=== PATIENT | female | born 1970 | race Caucasian/White ===

== ENCOUNTER 2018-02-06 20:39 | Emergency (ER) | payer MEDICAID, OTHER ==
[~2018-02-06] VITALS: Ht 149.9 cm; Wt 68.2 kg
[2018-02-06] MEDS ORDERED: morphine 4 MG/ML inj SYRINge IV ONE ×2 (21:00→21:40)
[2018-02-06] MEDS ORDERED: ondansetron/PF 4mg/2ml inj IV ONE (21:00)
[2018-02-06] MEDS ORDERED: LIDOcaine 1% 30ml preserv. free vial IJ ONE (21:55)
[2018-02-06] MEDS ORDERED: TETanus/Pertussis (Acell)/Diphther VAC/PF (Tdap-Adult) 0.5ml syringe IM ONE (22:35)
[2018-02-06] MEDS ORDERED: cephalexin 250mg capsule PO ONE (22:35)
[2018-02-06] MEDS ORDERED: CEPH500C2 PO (23:03)
[2018-02-06] MEDS ORDERED: HYDR-3965 PO (23:03)
[2018-02-06] MEDS ORDERED: IBUP-1986 PO (23:03)
[2018-02-06 23:26] VITALS: BP 125/84
== END 2018-02-07 00:35 | disposition home or self-care (01) ==
LOC: ER 20:39
DX: S80.852A Superficial foreign body, left lower leg, initial encounter (principal); Z79.899 Other long term (current) drug therapy; W45.8XXA Other foreign body or object entering through skin, initial encounter; Y93.89 Activity, other specified; Y92.89 Other specified places as the place of occurrence of the external cause; Y99.8 Other external cause status
CPT/HCPCS: 73590; 90471; 90715; 96374; 96375; 96376; 99284; A6449; J2270; J2405; J3490

== ENCOUNTER → 2018-02-19 | Outpatient (CLI) | payer MEDICAID, OTHER ==
[~2018-02-19] MED LIST: CEPH500C2 PO; HYDR-3965 PO; IBUP-1986 PO
[2018-02-19 09:27] VITALS: BP 145/94
== END | disposition home or self-care (01) ==
LOC: ORTHO 09:23
PROVIDERS: ATTEND Nurse Practitioner Family
DX: S80.852A Superficial foreign body, left lower leg, initial encounter (principal); F17.210 Nicotine dependence, cigarettes, uncomplicated; X58.XXXA Exposure to other specified factors, initial encounter; Y93.89 Activity, other specified; Y92.89 Other specified places as the place of occurrence of the external cause; Y99.8 Other external cause status
CPT/HCPCS: 99213; A6449

== ENCOUNTER 2018-02-26 09:06 | Outpatient (CLI) | payer MEDICAID, OTHER ==
[2018-02-26 09:11] VITALS: BP 135/87
== END 2018-02-26 09:52 | disposition home or self-care (01) ==
LOC: ORTHO 09:06
PROVIDERS: ATTEND Nurse Practitioner Family
DX: S80.852D Superficial foreign body, left lower leg, subsequent encounter (principal); F17.210 Nicotine dependence, cigarettes, uncomplicated; X58.XXXD Exposure to other specified factors, subsequent encounter
CPT/HCPCS: 99212; A6449

== ENCOUNTER → 2018-03-05 | Outpatient (CLI) | payer MEDICAID, OTHER ==
[2018-03-05 11:51] VITALS: BP 124/65
== END | disposition home or self-care (01) ==
LOC: ORTHO 11:58
PROVIDERS: ATTEND Nurse Practitioner Family
DX: S80.852D Superficial foreign body, left lower leg, subsequent encounter (principal); M25.672 Stiffness of left ankle, not elsewhere classified; F17.210 Nicotine dependence, cigarettes, uncomplicated; X58.XXXD Exposure to other specified factors, subsequent encounter
CPT/HCPCS: 99213

== ENCOUNTER 2018-05-04 12:15 | Emergency (ER) | payer MEDICAID ==
[~2018-05-04] VITALS: Ht 162.6 cm; Wt 140.0 kg
[~2018-05-04 12:15] MED LIST changes: -CEPH500C2 PO; -HYDR-3965 PO
[2018-05-04] MEDS ORDERED: normal saline 1000ML IV soln IVB STA (12:21)
[2018-05-04] MEDS ORDERED: famotidine/PF 10 mg/ml inj IV ONE (12:25)
[2018-05-04] MEDS ORDERED: methylPREDNISolone sod succ 125mg/2ml vial IV ONE (12:25)
[2018-05-04] MEDS ORDERED: diphenhydrAMINE 50 mg/ml inj IV ONE (12:25)
[2018-05-04 12:31] LABS: BASOPHILS % (AUTO) 0.8 % (0-1); EOSINOPHILS # (AUTO) 0.1 X10'3 (0-0.9); EOSINOPHILS % (AUTO) 2.6 % (0-6); HEMATOCRIT 47.2 % (35.0-45.0); HEMOGLOBIN 16.1 g/dl (12.0-16.0); LYMPHOCYTES # (AUTO) 1.5 X10'3 (1.1-4.8); LYMPHOCYTES % (AUTO) 39.4 % (21-51); MEAN CORPUSCULAR HEMOGLOBIN 32.7 PG (27.0-31.0); MEAN CORPUSCULAR HGB CONC 34.1 % (33.0-36.5); MEAN CORPUSCULAR VOLUME 95.9 FL (78-98); MEAN PLATELET VOLUME 8.4 FL (7.4-10.4); MONOCYTES # (AUTO) 0.1 X10'3 (0-0.9); MONOCYTES % (AUTO) 3.5 % (2-12); NEUTROPHILS # (AUTO) 2.1 X10'3 (1.8-7.7); NEUTROPHILS % (AUTO) 53.7 % (42-75); PLATELET COUNT 250 X10'3 (140-440); RED BLOOD COUNT 4.92 X10'6 (4.20-5.60); RED CELL DISTRIBUTION WIDTH 12.1 % (11.5-14.5); WHITE BLOOD COUNT 3.9 X10'3 (4.5-11.0)
[2018-05-04 12:46] LABS: ALANINE AMINOTRANSFERASE 156 U/L (12-78); ALBUMIN 3.6 G/DL (3.4-5.0); ALKALINE PHOSPHATASE 83 IU/L (46-116); ANION GAP 8 (8-16); ASPARTATE AMINO TRANSFERASE 86 U/L (10-37); BILIRUBIN,TOTAL 0.6 MG/DL (0.1-1.0); BLOOD UREA NITROGEN 15 MG/DL (7-18); BUN/CREATININE RATIO 17.9 (6.6-38.0); CALCIUM 8.6 MG/DL (8.5-10.1); CHLORIDE 106 MMOL/L (99-107); CREATININE 0.84 MG/DL (0.40-0.90); GLUCOSE 144 MG/DL (70-104); POTASSIUM 3.2 MMOL/L (3.5-5.1); SODIUM 143 MMOL/L (135-145); TOTAL CARBON DIOXIDE 29.2 MMOL/L (24-32); TOTAL PROTEIN 7.2 G/DL (6.4-8.2); eGFR 72 ML/MIN
[2018-05-04 12:48] LABS: PARTIAL THROMBOPLASTIN TIME 24 SECONDS (22-32); PROTHROMBIN TIME 10.5 SECONDS (9.0-12.0)
[2018-05-04 12:50] LABS: ETHANOL 0.066 GM/DL (0.0-0.010)
[2018-05-04] MEDS ORDERED: HYDROcodone/acetaminophen 10/325mg tab PO ONE (14:45)
[2018-05-04] MEDS ORDERED: METH4TAB81 PO (14:53)
[2018-05-04] MEDS ORDERED: TRAM50TA2 PO (14:53)
[2018-05-04 15:02] LABS: URINE AMPHETAMINE SCREEN POSITIVE (Neg); URINE BARBITUATE SCREEN NEGATIVE (Neg); URINE BENZODIAZEPINES SCREEN NEGATIVE (Neg); URINE CANNABINOID SCREEN NEGATIVE (Neg); URINE COCAINE SCREEN NEGATIVE (Neg); URINE METHADONE SCREEN NEGATIVE (Neg); URINE OPIATE SCREEN POSITIVE (Neg); URINE PHENCYCLIDINE SCREEN NEGATIVE (Neg)
[2018-05-04 15:12] VITALS: BP 126/81
== END 2018-05-04 15:14 | disposition home or self-care (01) ==
LOC: ER 12:15
DX: S02.2XXA Fracture of nasal bones, initial encounter for closed fracture (principal); T63.441A Toxic effect of venom of bees, accidental (unintentional), initial encounter; Y92.89 Other specified places as the place of occurrence of the external cause; M54.2 Cervicalgia; F10.129 Alcohol abuse with intoxication, unspecified; Z79.899 Other long term (current) drug therapy; V86.99XA Unspecified occupant of other special all-terrain or other off-road motor vehicle injured in nontraffic accident, initial encounter; Y93.89 Activity, other specified; Y99.8 Other external cause status
CPT/HCPCS: 36415; 70450; 70486; 72125; 80053; 80305; 80320; 85025; 85610; 85730; 93005; 96374; 96375; 99285; J1200; J2930; J3490

== ENCOUNTER 2018-11-01 19:39 | Emergency (ER) | payer MEDICAID ==
[~2018-11-01] VITALS: Ht 149.9 cm; Wt 65.0 kg
[~2018-11-01 19:39] MED LIST changes: +METH4TAB81 PO
[2018-11-01 19:42] VITALS: BP 159/97
[2018-11-01 20:17] LABS: CLARITY,URINE SLIGHTLY CLOUDY (Clear); COLOR,URINE YELLOW (Yellow); GLUCOSE, URINE NEGATIVE (Neg); KETONES,URINE NEGATIVE (Neg); LEUKOCYTE ESTERASE ,URINE NEGATIVE (Neg); NITRITES, URINE NEGATIVE (Neg); OCCULT BLOOD,URINE SMALL (Neg); PH,URINE 7.5 (4.8-8.0); PROTEIN,URINE NEGATIVE (Neg); UROBILINOGEN,URINE 0.2 E.U/dL (0.2-1.0)
[2018-11-01 20:18] LABS: UA COLLECTION TYPE CLN CATCH MIDSTREAM
[2018-11-01 20:21] LABS: URINE HCG NEGATIVE (NEG)
[2018-11-01 20:28] LABS: AMORPHOUS PHOSPHATES 3+; BACTERIA,URINE NONE SEEN /HPF (Neg); MUCUS STRANDS MODERATE /LPF (Neg); RBC,URINE 0-2 /HPF (0-2); SQUAMOUS EPITHELIAL CELL,UR MODERATE /LPF (FEW); WBC,URINE 0-4 /HPF (0-4)
[2018-11-01 20:50] LABS: BASOPHILS % (AUTO) 0.5 % (0-1); EOSINOPHILS # (AUTO) 0.1 X10'3 (0-0.9); EOSINOPHILS % (AUTO) 1.3 % (0-6); HEMATOCRIT 46.8 % (35.0-45.0); HEMOGLOBIN 16.1 g/dl (12.0-16.0); LYMPHOCYTES # (AUTO) 1.1 X10'3 (1.1-4.8); LYMPHOCYTES % (AUTO) 12.9 % (21-51); MEAN CORPUSCULAR HEMOGLOBIN 32.9 PG (27.0-31.0); MEAN CORPUSCULAR HGB CONC 34.4 g/dL (33.0-36.5); MEAN CORPUSCULAR VOLUME 95.4 FL (78-98); MEAN PLATELET VOLUME 8.5 FL (7.4-10.4); MONOCYTES # (AUTO) 0.5 X10'3 (0-0.9); MONOCYTES % (AUTO) 5.5 % (2-12); NEUTROPHILS # (AUTO) 6.9 X10'3 (1.8-7.7); NEUTROPHILS % (AUTO) 79.8 % (42-75); PLATELET COUNT 234 X10'3 (140-440); RED BLOOD COUNT 4.91 X10'6 (4.20-5.60); RED CELL DISTRIBUTION WIDTH 12.6 % (11.5-14.5); WHITE BLOOD COUNT 8.6 X10'3 (4.5-11.0)
[2018-11-01 20:54] LABS: ALANINE AMINOTRANSFERASE 251 U/L (12-78); ALBUMIN 4.2 G/DL (3.4-5.0); ALBUMIN/GLOBULIN RATIO 1.1 (1.1-1.5); ALKALINE PHOSPHATASE 109 IU/L (46-116); ANION GAP 9 (8-16); ASPARTATE AMINO TRANSFERASE 128 U/L (10-37); BILIRUBIN,TOTAL 0.7 MG/DL (0.1-1.0); BLOOD UREA NITROGEN 14 MG/DL (7-18); BUN/CREATININE RATIO 23.3 (6.6-38.0); CALCIUM 9.6 MG/DL (8.5-10.1); CHLORIDE 103 MMOL/L (99-107); GLUCOSE 136 MG/DL (70-104); POTASSIUM 3.4 MMOL/L (3.5-5.1); SODIUM 143 MMOL/L (135-145); TOTAL CARBON DIOXIDE 30.8 MMOL/L (24-32); eGFR > 90 ML/MIN
[2018-11-01] MEDS ORDERED: ciprofloxacin 250mg tablet PO ONE (23:00)
[2018-11-01] MEDS ORDERED: metroNIDAZOLE 500mg tablet PO ONE (23:00)
[2018-11-02] MEDS ORDERED: CIPR-230 PO (00:14)
[2018-11-02] MEDS ORDERED: METR-159 PO (00:14)
[2018-11-02] MEDS ORDERED: HYDROcodone/acetaminophen 5mg/325mg tablet PO ONE (00:15)
[2018-11-02] MEDS ORDERED: HYDR-3965 PO (00:17)
== END 2018-11-02 01:00 | disposition home or self-care (01) ==
LOC: ER 19:39
DX: K52.9 Noninfective gastroenteritis and colitis, unspecified (principal); Z79.2 Long term (current) use of antibiotics; Z79.899 Other long term (current) drug therapy; Z91.030 Bee allergy status
CPT/HCPCS: 36415; 74176; 80053; 81001; 81025; 85025; 85610; 99284; J3490

== ENCOUNTER 2019-03-15 08:01 | Day surgery (SDC) | payer MEDICAID ==
[2019-03-11 14:56] LABS: BASOPHILS % (AUTO) 0.6 % (0-1); EOSINOPHILS % (AUTO) 0.5 % (0-6); LYMPHOCYTES % (AUTO) 15.9 % (21-51); MEAN CORPUSCULAR HEMOGLOBIN 33.9 PG (27.0-31.0); MEAN CORPUSCULAR HGB CONC 34.6 g/dL (33.0-36.5); MEAN CORPUSCULAR VOLUME 97.9 FL (78-98); MEAN PLATELET VOLUME 8.9 FL (7.4-10.4); MONOCYTES # (AUTO) 0.3 X10'3 (0-0.9); MONOCYTES % (AUTO) 5.2 % (2-12); NEUTROPHILS # (AUTO) 4.9 X10'3 (1.8-7.7); NEUTROPHILS % (AUTO) 77.8 % (42-75); PRE OP HEMATOCRIT 45.6 % (35.0-45.0); PRE OP HEMOGLOBIN 15.8 g/dL (12.0-16.0); PRE OP PLATELET COUNT 232 X10'3 (140-440); RED BLOOD COUNT 4.66 X10'6 (4.20-5.60); RED CELL DISTRIBUTION WIDTH 12.3 % (11.5-14.5)
[2019-03-11 15:09] LABS: PRE OP PROTIME 10.1 SECONDS (9.0-12.0)
[2019-03-11 15:12] LABS: ALBUMIN 4.1 G/DL (3.4-5.0); ALBUMIN/GLOBULIN RATIO 1.1 (1.1-1.5); ALKALINE PHOSPHATASE 130 IU/L (46-116); BLOOD UREA NITROGEN 11 MG/DL (7-18); CALCIUM 9.3 MG/DL (8.5-10.1); CHLORIDE 107 MMOL/L (99-107); PRE OP ANION GAP 8 (8-16); PRE OP BILIRUB, TOTAL 0.6 MG/DL (0.0-1.0); PRE OP GLUCOSE 99 MG/DL (70-104); PRE OP POTASSIUM 3.6 MMOL/L (3.4-5.1); PRE OP SODIUM 143 MMOL/L (135-145); TOTAL CARBON DIOXIDE 27.7 MMOL/L (24-32); TOTAL PROTEIN 7.9 G/DL (6.4-8.2); eGFR > 90 ML/MIN
[2019-03-11 15:18] LABS: PRE OP ALT 288 U/L (30-65); PRE OP AST 108 U/L (10-37)
[2019-03-15] VITALS (16 sets, daily range): BP systolic 102–143; BP diastolic 65–97
[~2019-03-15] VITALS: Ht 149.9 cm; Wt 72.2 kg
[~2019-03-15 08:01] MED LIST changes: +ACET-2119 PO; +CETI10TA18 PO; +EPIN0.3A3 SQ; +FAMO-128 PO; +GABA-530 PO; -IBUP-1986 PO; -METH4TAB81 PO; +albuterol 2.5 MG/3 ML nebule NEB ONE; +ceFOXitin 2 GM ADDvantage bag 100 ML IV ONE; +famotidine 20mg tablet PO ONE; +ringers solution, lacted 1,000 ML IV SCH
[2019-03-15] MEDS ORDERED: LIDOcaine 1% 30ml preserv. free vial ONE (08:47)
[2019-03-15] MEDS ORDERED: vasoPRESSIN 20 units/ml inj. ONE (08:47)
[2019-03-15] MEDS ORDERED: ceFAZolin 1000mg inj ONE (08:47)
[2019-03-15] MEDS ORDERED: BUPIVAcaine/PF 2.5 mg/ml (0.25%) 30ml vial ONE (08:47)
[2019-03-15] MEDS ORDERED: clindamycin phosphate 40gm vag cream ONE (08:47)
[2019-03-15] MEDS ORDERED: morphine 10mg/ml inj. ONE (09:51)
[2019-03-15] MEDS ORDERED: ringers solution, lacted 1,000 ML IV SCH (10:29)
[2019-03-15] MEDS ORDERED: fentaNYL/PF 50MCG/1 ML 2ML syringe IV PRN ×2 (10:30)
[2019-03-15] MEDS ORDERED: ondansetron/PF 4mg/2ml inj IV PRN ×2 (10:30→13:40)
[2019-03-15] MEDS ORDERED: hydrALAZINE 20mg/ml inj. IV PRN (10:30)
[2019-03-15] MEDS ORDERED: labetalol 20mg/4ml (5mg/ml) syringe IV PRN (10:30)
[2019-03-15] MEDS ORDERED: morphine 4 MG/ML inj SYRINge IV PRN ×2 (10:30)
[2019-03-15] MEDS ORDERED: midazolam 2 mg/2 ml injection ONE (11:12)
[2019-03-15] MEDS ORDERED: fentaNYL /PF 50mcg/ml 5ml ampule ONE (11:12)
[2019-03-15] MEDS ORDERED: dexamethasone sod phosphate 10mg/ml inj ONE (11:13)
[2019-03-15] MEDS ORDERED: neostigmine methylsulfate 1 MG/ML 10ml vial ONE (11:13)
[2019-03-15] MEDS ORDERED: fluoroscein sod 10% (100mg/ml) 5ml vial ONE (11:13)
[2019-03-15] MEDS ORDERED: glycopyrrolate 0.2mg/ml inj ONE (11:13)
[2019-03-15] MEDS ORDERED: sevoflurane 250ml liquid IH ONE (11:13)
[2019-03-15] MEDS ORDERED: labetalol 20mg/4ml (5mg/ml) syringe IV ONE (11:13)
[2019-03-15] MEDS ORDERED: rocuronium 10mg/ml inj IV ONE (11:23)
[2019-03-15] MEDS ORDERED: LIDOcaine 2% (20mg/ml) 5ml vial ONE (11:23)
[2019-03-15] MEDS ORDERED: propofol inj 20 ML IV ONE (11:23)
[2019-03-15] MEDS ORDERED: ondansetron/PF 4mg/2ml inj ONE (11:24)
[2019-03-15] MEDS ORDERED: ceFAZolin 1000mg inj IR ONE (12:55)
[2019-03-15] MEDS: ringers solution, lacted 1,000 ML IV SCH ×2 (13:38→23:39)
[2019-03-15] MEDS ORDERED: diphenhydrAMINE 50 mg/ml inj IV PRN (13:40)
[2019-03-15] MEDS ORDERED: normal saline 500ml IV soln 500 ML IV PRN (13:40)
[2019-03-15] MEDS ORDERED: magnesium hydroxide 30ml (MOM) UD suspension PO PRN (13:40)
[2019-03-15] MEDS ORDERED: bisacodyl 10mg suppository rectal RC PRN (13:40)
[2019-03-15] MEDS ORDERED: HYDROcodone/acetaminophen 5mg/325mg tablet PO PRN ×2 (13:40)
[2019-03-15] MEDS ORDERED: naloxone 0.4 mg/ml inj IV PRN (13:40)
[2019-03-15] MEDS ORDERED: temazepam 15mg capsule PO PRN (13:40)
[2019-03-15] MEDS ORDERED: CADD PCA waste documentation MC PRN (13:40)
--- NOTE | 2019-03-15 13:45 | NUR ---
ADMITTED TO PACU FROM OR ACCOMPANIED BY ANESTHESIA. INTIAL PHYSICAL ASSESSMENT DONE AND RECORDED. AWAKE AND RESPONSE ON ARRIVE YO PACU, REPORT RECEIVED FROM ANESTHESIA.
[2019-03-15] MEDS: HYDROmorphone/NS 1 mg/ml CADD 50 ML IV SCH ×5 (14:06→23:00)
--- NOTE | 2019-03-15 15:00 | NUR ---
PACU DISCHARGE CRITERIA MET, REPORT GIVEN TO FLOOR. DENIES PAIN OR DISCOMFORT, TRANSFERRED TO ROOM IN STABLE GOOD CONDITION.
[2019-03-15] MEDS: ketorolac trometh. 30mg/ml inj. IV PRN (15:45)
--- NOTE | 2019-03-15 18:27 | NUR ---
Problems reprioritized. Patient report given, questions answered & plan of care reviewed with Lita CONLEY.
--- NOTE | 2019-03-15 18:51 | NUR ---
Patient in room [facility]. I have received report from Snow CONLEY and had the opportunity to ask questions and assume patient care.
[2019-03-15] MEDS: docusate sod 100mg capsule PO SCH (19:51)
[2019-03-16] VITALS: BP 117/93
[2019-03-16] MEDS: HYDROmorphone/NS 1 mg/ml CADD 50 ML IV SCH ×4 (01:00→07:00)
[2019-03-16 05:16] LABS: BASOPHILS % (AUTO) 0.2 % (0-1); EOSINOPHILS % (AUTO) 0 % (0-6); HEMATOCRIT 37.5 % (35.0-45.0); HEMOGLOBIN 12.6 g/dl (12.0-16.0); LYMPHOCYTES # (AUTO) 0.6 X10'3 (1.1-4.8); LYMPHOCYTES % (AUTO) 5.7 % (21-51); MEAN CORPUSCULAR HEMOGLOBIN 33.7 PG (27.0-31.0); MEAN CORPUSCULAR HGB CONC 33.8 g/dL (33.0-36.5); MEAN CORPUSCULAR VOLUME 99.7 FL (78-98); MEAN PLATELET VOLUME 8.8 FL (7.4-10.4); MONOCYTES % (AUTO) 9.3 % (2-12); NEUTROPHILS # (AUTO) 9.4 X10'3 (1.8-7.7); NEUTROPHILS % (AUTO) 84.8 % (42-75); PLATELET COUNT 239 X10'3 (140-440); RED BLOOD COUNT 3.76 X10'6 (4.20-5.60); RED CELL DISTRIBUTION WIDTH 12.5 % (11.5-14.5); WHITE BLOOD COUNT 11.1 X10'3 (4.5-11.0)
[2019-03-16] MEDS: ringers solution, lacted 1,000 ML IV SCH (05:38)
--- NOTE | 2019-03-16 06:23 | NUR ---
Patient in room [facility] 348. I have received report from Ingrid CONLEY and had the opportunity to ask questions and assume patient care.
--- NOTE | 2019-03-16 06:33 | NUR ---
Problems reprioritized. Patient report given, questions answered & plan of care reviewed with Snow CONLEY.
[2019-03-16 06:57] VITALS: BP 108/66
[2019-03-16] MEDS: ketorolac trometh. 30mg/ml inj. IV PRN ×2 (08:05→14:26)
[2019-03-16] MEDS: docusate sod 100mg capsule PO SCH (08:15)
[2019-03-16 12:20] VITALS: BP 99/60
--- NOTE | 2019-03-16 17:52 | NUR ---
Patient discharged, all paper work completed. Patient is aware of next doses for all home medications. IV DC'd. Home educations completed with verbal acknowledgement of understanding. Patient agrees to come into ER if she is unable to void or call Dr. Braun office. Patient has pre scheduled appt with Dr. Jordan. 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 All other belongings are bagged up and with patient to take on discharge.
--- NOTE | 2019-03-16 18:12 | NUR ---
Problems reprioritized. Patient report given, questions answered & plan of care reviewed with Ingrid CONLEY, she is aware patient is discharged and waiting on a ride.
== END 2019-03-16 19:13 | disposition home or self-care (01) ==
LOC: PAS 08:01 → SUR 3N 13:38 → PAS 03-16 19:13
PROVIDERS: ATTEND Specialist
DX: N81.4 Uterovaginal prolapse, unspecified (principal); N80.0 Endometriosis of uterus; N72 Inflammatory disease of cervix uteri; N36.42 Intrinsic sphincter deficiency (ISD); N39.3 Stress incontinence (female) (male); K21.9 Gastro-esophageal reflux disease without esophagitis; F41.9 Anxiety disorder, unspecified; M19.019 Primary osteoarthritis, unspecified shoulder; E66.9 Obesity, unspecified; Z68.26 Body mass index [BMI] 26.0-26.9, adult; Z79.899 Other long term (current) drug therapy; Z79.01 Long term (current) use of anticoagulants; Z98.51 Tubal ligation status; F17.210 Nicotine dependence, cigarettes, uncomplicated; Z72.89 Other problems related to lifestyle; Z91.030 Bee allergy status; Z82.49 Family history of ischemic heart disease and other diseases of the circulatory system; R06.02 Shortness of breath
CPT/HCPCS: 36415; 57240; 57283; 58552; 80053; 82948; 85025; 85610; 85730; 86885; 86900; 86901; 94640; C1771; J0690; J0694; J1100; J1170; J1885; J2001; J2250; J2270; J2405; J2704; J2710; J3010; J3490; J7120; A4215; A4314; A4338; A4355; A4618; A6250; A7000; G0378

== ENCOUNTER → 2019-09-02 | Day surgery (SDC) | payer MEDICAID ==
[2019-08-25 13:16] LABS: BASOPHILS # (AUTO) 0.1 X10'3 (0-0.2); BASOPHILS % (AUTO) 1.4 % (0-1); EOSINOPHILS # (AUTO) 0.1 X10'3 (0-0.9); EOSINOPHILS % (AUTO) 2.8 % (0-6); LYMPHOCYTES # (AUTO) 1.3 X10'3 (1.1-4.8); LYMPHOCYTES % (AUTO) 26.1 % (21-51); MEAN CORPUSCULAR HEMOGLOBIN 32.8 PG (27.0-31.0); MEAN CORPUSCULAR HGB CONC 34.5 g/dL (33.0-36.5); MEAN CORPUSCULAR VOLUME 95.3 FL (78-98); MEAN PLATELET VOLUME 8.6 FL (7.4-10.4); MONOCYTES # (AUTO) 0.3 X10'3 (0-0.9); NEUTROPHILS # (AUTO) 3.1 X10'3 (1.8-7.7); NEUTROPHILS % (AUTO) 62.7 % (42-75); PRE OP HEMATOCRIT 46.3 % (35.0-45.0); PRE OP PLATELET COUNT 277 X10'3 (140-440); RED BLOOD COUNT 4.86 X10'6 (4.20-5.60); RED CELL DISTRIBUTION WIDTH 12.3 % (11.5-14.5)
[2019-08-25 13:28] LABS: PRE OP PROTIME 10.1 SECONDS (9.0-12.0)
[2019-08-25 13:29] LABS: ALBUMIN/GLOBULIN RATIO 1.1 (1.1-1.5); ALKALINE PHOSPHATASE 99 IU/L (46-116); BLOOD UREA NITROGEN 13 MG/DL (7-18); BUN/CREATININE RATIO 22.4 (6.6-38.0); CALCIUM 8.7 MG/DL (8.5-10.1); CHLORIDE 107 MMOL/L (99-107); CREATININE 0.58 MG/DL (0.40-0.90); PRE OP ANION GAP 12 (8-16); PRE OP AST 82 U/L (10-37); PRE OP BILIRUB, TOTAL 0.5 MG/DL (0.0-1.0); PRE OP GLUCOSE 124 MG/DL (70-104); PRE OP POTASSIUM 3.6 MMOL/L (3.4-5.1); PRE OP SODIUM 148 MMOL/L (135-145); TOTAL CARBON DIOXIDE 29.4 MMOL/L (24-32); TOTAL PROTEIN 7.7 G/DL (6.4-8.2); eGFR > 90 ML/MIN
[2019-08-25 13:30] LABS: PRE OP ALT 153 U/L (30-65)
[~2019-09-02] VITALS: Ht 149.9 cm; Wt 72.6 kg
[2019-09-02] VITALS (12 sets, daily range): BP systolic 136–146; BP diastolic 71–96
[~2019-09-02] MED LIST changes: -ACET-2119 PO; +BUPIVAcaine/PF 2.5 mg/ml (0.25%) 30ml vial ONE; -CETI10TA18 PO; -FAMO-128 PO; -GABA-530 PO; +HYDROcodone/acetaminophen 5mg/325mg tablet PO ONE; +MIDAZolam 5mg/5ml vial ONE; -ceFOXitin 2 GM ADDvantage bag 100 ML IV ONE; +cefazolin/dext.iso 2gm/50ml 50 ML IV ONE; +dexamethasone sod phosphate 10mg/ml inj ONE; +fentaNYL/PF 50MCG/1 ML 2ML syringe IV PRN; +fentaNYL/PF 50MCG/1 ML 2ML syringe ONE; +hydrALAZINE 20mg/ml inj. IV PRN; +labetalol 20mg/4ml (5mg/ml) syringe IV PRN; +methylPREDNISolone sod succ 125mg/2ml vial ONE; +morphine 2 MG/ML inj. syringe IV PRN; +morphine 4 MG/ML inj SYRINge IV PRN; +ondansetron/PF 4mg/2ml inj IV PRN; +ondansetron/PF 4mg/2ml inj ONE; +sevoflurane 250ml liquid IH ONE; +vancomycin inj 1,500 MG in normal saline 300ml IV soln IV ONE
--- NOTE | 2019-09-02 13:11 | NUR ---
Received from OR via , accompanied by Anesthesiologist DR MOLINA and report given by Anesthesiolgist. AWAKENS LUZ VOICE. VITALS STABLE. DRESSING DI. JANI PAIN.
--- NOTE | 2019-09-02 14:21 | NUR ---
Report called to receiving nurse. Transferred via [facility] . Special Issues communicated to receiving nurse. AWAKE AND ORIENTED. VITALS STABLE. DRESSING DI. JANI PAIN. TO PAS AT THIS TIOME.
--- NOTE | 2019-09-02 15:30 | NUR ---
PT DISCHARGED TO HOME SAFELY VIA W/C TO VEHICLE IN FRONT OF THE MEDICAL C[facility] BEING DRIVEN BY A FRIEND. INSTRUCTIONS TO PT WHO STATES UNDERSTANDING. PT TOLERATING ICE CHIPS AND REQUESTED A NORCO PRIOR TO DC TO HOME. PT ABLE TO WIGGLE FINGERS TO LEFT HAND W/ EASE AND STATES PAIN IS MORE TOLERABLE. PT STATES READINESS FOR DC TO HOME. ALL BELONGINGS W/ PT UPON DISCHARGE. IV DC'D , CATHETER TIP IN TACT.
== END | disposition home or self-care (01) ==
LOC: PAS 09:31
PROVIDERS: ATTEND Orthopaedic Surgery
DX: G56.02 Carpal tunnel syndrome, left upper limb (principal); G56.22 Lesion of ulnar nerve, left upper limb; M65.342 Trigger finger, left ring finger; S66.115A Strain of flexor muscle, fascia and tendon of left ring finger at wrist and hand level, initial encounter; F17.209 Nicotine dependence, unspecified, with unspecified nicotine-induced disorders; K21.9 Gastro-esophageal reflux disease without esophagitis; G89.4 Chronic pain syndrome; I10 Essential (primary) hypertension; M19.011 Primary osteoarthritis, right shoulder; M19.012 Primary osteoarthritis, left shoulder; E66.8 Other obesity; Z68.38 Body mass index [BMI] 38.0-38.9, adult; Z79.899 Other long term (current) drug therapy; Z79.01 Long term (current) use of anticoagulants; Z72.89 Other problems related to lifestyle; X58.XXXA Exposure to other specified factors, initial encounter; Y93.89 Activity, other specified; Y92.89 Other specified places as the place of occurrence of the external cause; Y99.8 Other external cause status
CPT/HCPCS: 26055; 26357; 36415; 64719; 64721; 80053; 82948; 85025; 85610; 85730; 94640; J1100; J2250; J2405; J2930; J3010; J3370; J3490; A4215; A4618; A6449; A7000; J7120

== ENCOUNTER 2020-03-30 09:54 | Day surgery (SDC) | payer MEDICAID ==
[2020-03-22 12:30] LABS: BASOPHILS % (AUTO) 0.7 % (0-1); EOSINOPHILS # (AUTO) 0.2 X10'3 (0-0.9); EOSINOPHILS % (AUTO) 3.2 % (0-6); LYMPHOCYTES # (AUTO) 1.7 X10'3 (1.1-4.8); LYMPHOCYTES % (AUTO) 33.5 % (21-51); MEAN CORPUSCULAR HEMOGLOBIN 33.4 PG (27.0-31.0); MEAN CORPUSCULAR HGB CONC 34.2 g/dL (33.0-36.5); MEAN CORPUSCULAR VOLUME 97.5 FL (78-98); MEAN PLATELET VOLUME 8.6 FL (7.4-10.4); MONOCYTES # (AUTO) 0.4 X10'3 (0-0.9); NEUTROPHILS # (AUTO) 2.8 X10'3 (1.8-7.7); NEUTROPHILS % (AUTO) 54.6 % (42-75); PRE OP HEMATOCRIT 44.3 % (35.0-45.0); PRE OP HEMOGLOBIN 15.2 g/dL (12.0-16.0); PRE OP PLATELET COUNT 216 X10'3 (140-440); RED BLOOD COUNT 4.54 X10'6 (4.20-5.60); RED CELL DISTRIBUTION WIDTH 12.1 % (11.5-14.5)
[2020-03-22 12:43] LABS: ALBUMIN/GLOBULIN RATIO 1.1 (1.1-1.5); ALKALINE PHOSPHATASE 122 IU/L (46-116); BLOOD UREA NITROGEN 15 MG/DL (7-18); BUN/CREATININE RATIO 24.6 (6.6-38.0); CALCIUM 8.9 MG/DL (8.5-10.1); CHLORIDE 106 MMOL/L (99-107); CREATININE 0.61 MG/DL (0.40-0.90); PRE OP ANION GAP 9 (8-16); PRE OP BILIRUB, TOTAL 0.5 MG/DL (0.0-1.0); PRE OP GLUCOSE 102 MG/DL (70-104); PRE OP POTASSIUM 3.6 MMOL/L (3.4-5.1); PRE OP SODIUM 144 MMOL/L (135-145); TOTAL PROTEIN 7.7 G/DL (6.4-8.2); eGFR > 90 ML/MIN
[2020-03-22 12:45] LABS: PRE OP ALT 276 U/L (30-65); PRE OP AST 131 U/L (10-37)
[~2020-03-30] VITALS: Ht 149.9 cm; Wt 73.5 kg
[2020-03-30] VITALS (8 sets, daily range): BP systolic 121–164; BP diastolic 76–95
[~2020-03-30 09:54] MED LIST changes: -BUPIVAcaine/PF 2.5 mg/ml (0.25%) 30ml vial ONE; +CETI10TA15 PO; +DICL100G30 TOP; +ESTR42.53 VG; -HYDROcodone/acetaminophen 5mg/325mg tablet PO ONE; -MIDAZolam 5mg/5ml vial ONE; +OXYB5TAB16 PO; -albuterol 2.5 MG/3 ML nebule NEB ONE; -dexamethasone sod phosphate 10mg/ml inj ONE; -fentaNYL/PF 50MCG/1 ML 2ML syringe IV PRN; -fentaNYL/PF 50MCG/1 ML 2ML syringe ONE; -hydrALAZINE 20mg/ml inj. IV PRN; -labetalol 20mg/4ml (5mg/ml) syringe IV PRN; -methylPREDNISolone sod succ 125mg/2ml vial ONE; -morphine 2 MG/ML inj. syringe IV PRN; -morphine 4 MG/ML inj SYRINge IV PRN; -ondansetron/PF 4mg/2ml inj IV PRN; -ondansetron/PF 4mg/2ml inj ONE; -sevoflurane 250ml liquid IH ONE; +vancomycin 1,500 MG in NS 300ml IV soln IV ONE; -vancomycin inj 1,500 MG in normal saline 300ml IV soln IV ONE
[2020-03-30] MEDS ORDERED: BUPIVAcaine/PF 2.5 mg/ml (0.25%) 30ml vial ONE (11:37)
[2020-03-30] MEDS ORDERED: methylPREDNISolone sod succ 125mg/2ml vial ONE (11:37)
[2020-03-30] MEDS ORDERED: fentaNYL/PF 50MCG/1 ML 2ML syringe ONE ×2 (11:55→12:09)
[2020-03-30] MEDS ORDERED: MIDAZolam 5mg/5ml vial ONE (11:55)
[2020-03-30] MEDS ORDERED: LIDOcaine 0.5% (5mg/ml) 50ml vial ONE (11:57)
[2020-03-30] MEDS ORDERED: labetalol 20mg/4ml (5mg/ml) syringe IV ONE (12:40)
--- NOTE | 2020-03-30 12:42 | NUR ---
Received from OR via , accompanied by Anesthesiologist DR HOLGUIN and report given by Anesthesiolgist. AWAKENS TO VOICE. VITALS STABLE. SPLINT DI. JANI PAIN. FINGERS WARM AND PINK.
[2020-03-30] MEDS ORDERED: ipratropium/albuterol 3ml nebule NEB ONE (12:55)
[2020-03-30] MEDS ORDERED: proCHLORperazine 10 MG/2 ml inj IV PRN (13:20)
[2020-03-30] MEDS ORDERED: meperidine/PF 25mg/ml syringe IV PRN ×3 (13:20)
[2020-03-30] MEDS ORDERED: morphine 2 MG/ML inj. syringe IV PRN (13:20)
[2020-03-30] MEDS ORDERED: ringers solution, lacted 1,000 ML IV SCH (13:20)
[2020-03-30] MEDS ORDERED: ondansetron/PF 4mg/2ml inj IV PRN (13:20)
[2020-03-30] MEDS ORDERED: morphine 4 MG/ML inj SYRINge IV PRN (13:20)
--- NOTE | 2020-03-30 13:52 | NUR ---
AWAKE AND ORIENTED. VITALS STABLE. SPLINT DI. JANI PAIN. HOME WITH A FRIEND AT THIS TIME.
== END 2020-03-30 13:52 | disposition home or self-care (01) ==
LOC: PAS 09:54
PROVIDERS: ATTEND Orthopaedic Surgery
DX: G56.01 Carpal tunnel syndrome, right upper limb (principal); G56.21 Lesion of ulnar nerve, right upper limb; G89.4 Chronic pain syndrome; K21.9 Gastro-esophageal reflux disease without esophagitis; F17.209 Nicotine dependence, unspecified, with unspecified nicotine-induced disorders; I10 Essential (primary) hypertension; E66.8 Other obesity; Z68.33 Body mass index [BMI] 33.0-33.9, adult; M19.012 Primary osteoarthritis, left shoulder; Z91.030 Bee allergy status; Z79.899 Other long term (current) drug therapy; Z20.828 Contact with and (suspected) exposure to other viral communicable diseases; Z90.710 Acquired absence of both cervix and uterus; Z98.890 Other specified postprocedural states
CPT/HCPCS: 36415; 64719; 64721; 80053; 82948; 85025; 87635; 93005; 94640; 94760; A6222; J2001; J2250; J2405; J2930; J3010; J3370; J3490; J7040; A4215; A4618; A6449; A7000; J7120

== ENCOUNTER 2025-01-12 14:18 | Outpatient (CLI) | payer MEDICAID ==
[~2025-01-12 14:18] MED LIST changes: -DICL100G30 TOP; +DICL100G59 TOP; -OXYB5TAB16 PO; +OXYB5TAB21 PO; -cefazolin/dext.iso 2gm/50ml 50 ML IV ONE; -famotidine 20mg tablet PO ONE; -ringers solution, lacted 1,000 ML IV SCH; -vancomycin 1,500 MG in NS 300ml IV soln IV ONE
--- NOTE | 2025-01-12 15:45 | RADIOLOGY REPORT ---
CLINICAL INDICATION: PAIN IN L KNEE TECHNIQUE: Multiplanar, multisequence MRI of the left knee was performed without contrast. Contrast: None. COMPARISON: None FINDINGS: Joint space and synovium: There is no joint effusion, popliteal cyst or synovial thickening. Bones and articular cartilage: There is patchy T2 hyperintensity in the proximal tibia anteriorly. No fracture. The alignment is normal. Focal near full-thickness chondral defect in the medial smith lar facet. There is diffuse chondral thinning on both sides of the medial and lateral tibiofemoral co mpartment. Menisci: The medial meniscus is intact. The lateral meniscus is intact. Tendons and ligaments: The tendons in the posterior knee are intact. The extensor mechanism is inta ct. The anterior cruciate ligament is intact. The posterior cruciate ligament is intact. The m edial collateral ligament and the lateral collateral ligament stabilizing complex are intact. Muscles: Regional muscles are preserved in bulk and signal characteristics. Other: There is a 6 mm cystic structure posterior to the PCL. 6 mm structure abutting the ACL. IMPRESSION: 1. 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 2. No meniscus or ligament injury. 3. Small ganglion cyst adjacent to the ACL and PCL.
== END 2025-01-12 23:59 | disposition home or self-care (01) ==
LOC: MRI02 14:18
PROVIDERS: ATTEND Student in an Organized Health Care Education/Training Program
DX: M22.42 Chondromalacia patellae, left knee (principal); M67.462 Ganglion, left knee; M25.562 Pain in left knee
CPT/HCPCS: 73721